=== PATIENT | female | born 1995 | race Caucasian/White ===

== ENCOUNTER → 2016-03-10 | Outpatient (CLI) | payer OTHER ==
[~2016-03-10] MED LIST: XULA1DIS TD
[2016-03-10 18:32] LABS: BASO % 0.2 % (0.0-1.0); EOS % 0.7 % (0.0-3.0); LARGE UNSTAINED CELL # 0.1 K/mm3 (0.0-0.4); LARGE UNSTAINED CELL % 1.4 % (0.0-4.0); LYMPH # 1.4 K/mm3 (1.5-6.5); LYMPH % 18.7 % (24.0-44.0); MEAN CORPUSCULAR HEMOGLOBIN 28.6 pg (27.0-33.0); MEAN CORPUSCULAR HGB CONC 32.1 g/dl (32.0-36.5); MEAN CORPUSCULAR VOLUME 89.2 fl (80.0-96.0); MONO # 0.4 K/mm3 (0.0-0.8); MONO % 5.9 % (0.0-5.0); NEUTROPHILS # 5.4 K/mm3 (1.8-7.7); NEUTROPHILS % 73.1 % (36.0-66.0); PLATELET COUNT, AUTOMATED 220 k/mm3 (150-450); RED CELL DISTRIBUTION WIDTH 12.9 % (11.5-14.5); WHITE BLOOD COUNT 7.4 K/mm3 (4.0-10.0)
[2016-03-11 10:18] LABS: HIV SCRN NEGATIVE (NEGATIVE); HIV SCRN1 NEGATIVE (NEGATIVE)
[2016-03-11 10:19] LABS: CONTROL LINE INT CTR LINE PRESENT
[2016-03-13 10:49] LABS: HBsAg Prenatal NEGATIVE (NEGATIVE)
== END ==
LOC: M SMT 14:04
PROVIDERS: ATTEND Obstetrics & Gynecology
DX: Z34.81 Encounter for supervision of other normal pregnancy, first trimester (principal)

== ENCOUNTER → 2016-06-06 | Outpatient (CLI) | payer OTHER ==
--- NOTE | 2016-06-06 16:51 | REP ---
OB ULTRASOUND: Real-time sonographic evaluation of the gravid uterus is performed. There is a single living intrauterine gestation. The estimated gestational age is 18 weeks 2 days based on today's ultrasound measurements. EDC 11/05/2016. BPD 41 mm = 18 weeks 4 days HC 154 mm = 18 weeks 3 days AC 128 mm = 18 weeks 3 days Femur length 27 mm = 18 weeks 2 days HC/AC ratio 1.20 within normal range. Estimated weight 235 grams at the 49th percentile. Cervix is closed measures 3.7 cm in length. heart rate 144 beats per minute. SEEN/GROSSLY UNREMARKABLE Lateral ventricles Yes Posterior fossa Yes Upper lip No Four-chamber heart Yes LVOT Yes RVOT Yes Stomach Yes Cord insertion Yes Three vessel cord Yes Kidneys Yes Bladder Yes Spine Yes position: Vertex Placenta: Anterior and grade 0 with no previa or abruption. Amniotic fluid: Within normal limits. Signed by Brent Haro MD 06/07/2016 08:34 A
== END ==
LOC: M SMT 14:04
PROVIDERS: ATTEND Obstetrics & Gynecology
DX: O09.299 Supervision of pregnancy with other poor reproductive or obstetric history, unspecified trimester (principal); Z82.79 Family history of other congenital malformations, deformations and chromosomal abnormalities

== ENCOUNTER → 2016-08-01 | Outpatient (CLI) | payer OTHER ==
[2016-08-01 13:44] LABS: MEAN CORPUSCULAR HEMOGLOBIN 30.6 pg (27.0-33.0); MEAN CORPUSCULAR VOLUME 89.9 fl (80.0-96.0); RED CELL DISTRIBUTION WIDTH 13.3 % (11.5-14.5)
== END ==
LOC: M SMT 10:58
PROVIDERS: ATTEND Advanced Practice Midwife
DX: Z34.02 Encounter for supervision of normal first pregnancy, second trimester (principal); Z13.79 Encounter for other screening for genetic and chromosomal anomalies

== ENCOUNTER 2016-10-05 01:27 | Inpatient (IN) | payer OTHER ==
[~2016-10-05] VITALS: Ht 162.6 cm; Wt 78.0 kg
[2016-10-05] VITALS (9 sets, daily range): BP systolic 121–146; BP diastolic 70–91
[2016-10-05] MEDS ORDERED: LACTATED RINGER'S 1000 ML IV STA (02:07)
[2016-10-05] MEDS ORDERED: LR 1,000 ML IV SCH (02:07)
[2016-10-05] MEDS ORDERED: BICITRA 30ML SOLN UDC PO ONE (02:15)
[2016-10-05] MEDS ORDERED: MORPHINE PRES-FREE INJ 10 MG/10 ML VIAL (J2274) As Ordered ONE (02:24)
[2016-10-05 02:27] LABS: MEAN CORPUSCULAR HEMOGLOBIN 30.5 pg (27.0-33.0); MEAN CORPUSCULAR HGB CONC 34.1 g/dl (32.0-36.5); MEAN CORPUSCULAR VOLUME 89.3 fl (80.0-96.0); RED CELL DISTRIBUTION WIDTH 12.7 % (11.5-14.5)
[2016-10-05] MEDS ORDERED: fentaNYL 100 MCG/2 ML INJECTION (J3010) As Ordered ONE (02:40)
[2016-10-05] MEDS ORDERED: MIDAZOLAM INJ 2 MG/2 ML VIAL (J2250) As Ordered ONE (02:43)
[2016-10-05] MEDS ORDERED: dexameTHASONE 4 MG/ML 1ML VIAL (J1100) As Ordered ONE (02:54)
[2016-10-05] MEDS ORDERED: ONDANSETRON 4MG/2ML VIAL (J2405) As Ordered ONE ×2 (02:54→05:17)
[2016-10-05] MEDS ORDERED: SUCCINYLCHOLINE 100 MG/5 ML SYRINGE (J0330) As Ordered ONE (02:54)
[2016-10-05] MEDS ORDERED: LIDOCAINE 2% INJ 100 MG/5 ML SDV (FOR ANES.) As Ordered ONE (02:55)
[2016-10-05] MEDS ORDERED: PROPOFOL 200 MG/20 ML VIAL As Ordered ONE (02:55)
[2016-10-05] MEDS ORDERED: METOCLOPRAMIDE INJ 10MG/2ML VIAL (J2765) As Ordered ONE (03:18)
[2016-10-05] MEDS ORDERED: NEOSTIGMINE 10 MG/10 ML VIAL (J2710) As Ordered ONE (03:23)
[2016-10-05] MEDS ORDERED: GLYCOPYRROLATE INJ 0.2 MG/ML 2 ML VIAL As Ordered ONE (03:23)
[2016-10-05 03:32] LABS: CORD GAS ABE A -1.9; CORD GAS HCO3 A 28.2 MEQ/L; CORD GAS O2 SAT A 38.7 %; CORD GAS PCO2 A 71.2 mmHg; CORD GAS PH A 7.215 UNITS; CORD GAS PO2 A 20.6 mmHg; CORD GAS SBC A 21.4 MEQ/L; CORD GAS TCO2 A 30.3 MEQ/L
[2016-10-05 03:42] LABS: CORD GAS ABE V -1.3; CORD GAS HCO3 V 27.6 MEQ/L; CORD GAS O2 SAT V 34.1 %; CORD GAS PCO2 V 63.3 mmHg; CORD GAS PH V 7.257 UNITS; CORD GAS PO2 V 18.1 mmHg; CORD GAS SBC V 21.7 MEQ/L; CORD GAS TCO2 V 29.5 MEQ/L
[2016-10-05] MEDS: LR 1,000 ML IV SCH ×2 (03:48→11:48)
[2016-10-05] MEDS ORDERED: KETOROLAC 60 MG/2 ML VIAL (J1885) As Ordered ONE (03:49)
[2016-10-05] MEDS ORDERED: NS 1,000 ML IV SCH (03:52)
[2016-10-05] MEDS ORDERED: MORPHINE 1MG/ML IN 0.9% NACL 100ML IV BAG IV PRN (04:00)
[2016-10-05] MEDS ORDERED: EPIDURAL/PCA KEYS XX PRN (04:00)
[2016-10-05] MEDS ORDERED: diphenhydrAMINE INJ 50MG/ML VIAL (J1200) IV PRN (04:00)
[2016-10-05] MEDS ORDERED: NALBUPHINE HCL 10 MG/ML AMP (J2300) IV PRN (04:00)
[2016-10-05] MEDS ORDERED: PROMETHAZINE 25 MG TAB PO PRN (04:00)
[2016-10-05] MEDS ORDERED: NALOXONE INJ 0.4 MG/1 ML VIAL (J2310) IV PRN (04:00)
[2016-10-05] MEDS ORDERED: MEASLES,MUMPS,RUBELLA VACCINE INJ (MMR-II) (90707) SC SCH (04:00)
[2016-10-05] MEDS ORDERED: RHOGAM 300 MCG (1500 IU) INJ (J2790) IM SCH (04:00)
[2016-10-05] MEDS ORDERED: ONDANSETRON 4MG/2ML VIAL (J2405) IV PRN ×3 (04:00→04:45)
[2016-10-05] MEDS ORDERED: PERCOCET 5MG/325MG TAB PO PRN ×3 (04:00→04:45)
[2016-10-05] MEDS ORDERED: HYDROmorphone HCL 1 MG/ML SYRINGE (J1170) As Ordered ONE (04:11)
[2016-10-05] MEDS: HYDROmorphone HCL 1 MG/ML SYRINGE (J1170) IV PRN ×2 (04:14→04:26)
[2016-10-05] MEDS ORDERED: OXYTOCIN 30 UNITS IN 0.9% NaCl 500ML IV BAG (J2590) As Ordered ONE (04:34)
[2016-10-05] MEDS ORDERED: MORPHINE 1MG/ML IN 0.9% NACL 100ML IV BAG As Ordered ONE (04:37)
[2016-10-05] MEDS ORDERED: fentaNYL 100 MCG/2 ML INJECTION (J3010) IV PRN (04:45)
[2016-10-05] MEDS: KETOROLAC 30 MG/ML VIAL (J1885) IV SCH ×3 (10:08→22:37)
[2016-10-05] MEDS: DOCUSATE SODIUM 100 MG CAP PO SCH ×2 (10:09→20:28)
[2016-10-05] MEDS: PRENATAL VITAMINS CHEWABLE TABLET PO SCH (10:09)
[2016-10-05] MEDS: PERCOCET 5MG/325MG TAB PO PRN ×2 (10:10→20:29)
--- NOTE | 2016-10-05 22:41 | HPE ---
DATE OF ADMISSION: 10/05/2016 21-year-old 1, estimated date of delivery 11/05/2016 presents at 35 weeks 3 days with reports of spontaneous rupture of membranes, clear, pink tinged fluid with onset of uterine contractions thereafter. Fetus is active. Last normal menstrual period was uncertain, sonogram at 6 weeks confirmed her date of 11/05/2016. Anatomy scan within normal limits. Appropriate care. ALLERGIES: She is allergic to SHELLFISH and BACTRIM. MEDICAL-SURGICAL: Noncontributory. FAMILY: Unknown. The patient is adopted. SOCIAL HISTORY: Single. Father of the baby is present and supportive. Denies tobacco, alcohol or drugs. OBJECTIVE: Prepregnancy weight 135, total weight gain 40 pounds. A+, antibody negative, rubella immune, VDRL, hepatitis B, hepatitis C, HIV, gonorrhea, Chlamydia all negative. One-hour glucose 74. Group B strep was unknown obtained upon admission. Vital signs are stable. She is uncomfortable contractions 2-5 minutes apart. heart 140 with moderate variability. Scant, clear, pink, mucoid fluid draining per vagina. Spec exam: parts were visible. Sterile vaginal exam 4+ centimeters. parts are palpable non-cephalic. Bedside sonogram confirms breech presentation. ASSESSMENT: Primipara malpresentation and grossly ruptured membranes. PLAN: Admit. Dr. Henley is notified. Prepped for primary .
[2016-10-06] MEDS: PERCOCET 5MG/325MG TAB PO PRN ×4 (00:49→22:25)
[2016-10-06 01:52] VITALS: BP 133/70
[2016-10-06] MEDS: KETOROLAC 30 MG/ML VIAL (J1885) IV SCH (04:34)
[2016-10-06 06:00] VITALS: BP 134/66
[2016-10-06 08:23] LABS: MEAN CORPUSCULAR HEMOGLOBIN 31.2 pg (27.0-33.0); MEAN CORPUSCULAR VOLUME 91.7 fl (80.0-96.0); RED CELL DISTRIBUTION WIDTH 13.3 % (11.5-14.5); WHITE BLOOD COUNT 7.8 K/mm3 (4.0-10.0)
[2016-10-06] MEDS: DOCUSATE SODIUM 100 MG CAP PO SCH ×2 (09:55→20:48)
[2016-10-06] MEDS: PRENATAL VITAMINS CHEWABLE TABLET PO SCH (09:55)
[2016-10-06 10:01] VITALS: BP 131/69
[2016-10-06] MEDS ORDERED: OXYC1TAB23 PO (11:26)
[2016-10-06] MEDS ORDERED: IBUP-1022 PO (11:27)
[2016-10-06] MEDS ORDERED: COLA100C5 PO (11:28)
[2016-10-06 14:30] VITALS: BP 151/72
[2016-10-06] MEDS: IBUPROFEN 800 MG TAB PO SCH ×2 (15:54→20:48)
[2016-10-06 18:11] VITALS: BP 145/83
[2016-10-06 22:24] VITALS: BP 122/72
[2016-10-07] MEDS: IBUPROFEN 800 MG TAB PO SCH ×3 (04:09→20:12)
[2016-10-07 06:08] VITALS: BP 135/81
[2016-10-07] MEDS: DOCUSATE SODIUM 100 MG CAP PO SCH ×2 (08:40→20:12)
[2016-10-07] MEDS: PRENATAL VITAMINS CHEWABLE TABLET PO SCH (08:40)
[2016-10-07] MEDS: PERCOCET 5MG/325MG TAB PO PRN ×2 (08:43→19:20)
[2016-10-07 18:00] VITALS: BP 139/80
[2016-10-08] MEDS: PERCOCET 5MG/325MG TAB PO PRN ×3 (01:03→14:13)
[2016-10-08] MEDS: IBUPROFEN 800 MG TAB PO SCH ×2 (04:19→12:34)
[2016-10-08 06:00] VITALS: BP 130/79
[2016-10-08] MEDS: PRENATAL VITAMINS CHEWABLE TABLET PO SCH (08:56)
[2016-10-08] MEDS: DOCUSATE SODIUM 100 MG CAP PO SCH (08:56)
[2016-10-08] MEDS ORDERED: PRENTAB9 PO (13:50)
[2016-10-08] MEDS ORDERED: IBUP-1114 PO (13:50)
--- NOTE | 2016-10-09 11:32 | DSES ---
DATE OF ADMISSION: 10/05/2016 DATE OF DISCHARGE: 10/08/2016 FINAL DIAGNOSES: 1. labor with premature rupture of membrane. 2. Breech presentation. DISCHARGE DIAGNOSES: 1. labor with premature rupture of membrane. 2. Breech presentation. 3. Status post primary low transverse section. CONDITION ON DISCHARGE: Stable. DISCHARGE INSTRUCTIONS: The patient is instructed to call for post op appointment in 2 weeks. She is to call if there is any severe bleeding, pain, temperature greater than 101. She is instructed to use Motrin as needed for pain and Percocet as needed BRIEF HISTORY: Nayely is G1, para 0 who presented with premature rupture of membranes found to be in breech position. She underwent a primary low transverse section. Was then transferred to maternity for postoperative care. Postoperatively she did well, remained afebrile all throughout her postoperative stay. Her preop hemoglobin and hematocrit was 14.6 over 42.9 and her postop hematocrit and hemoglobin was 10 over 29.5. On the day of discharge, her physical exam was essentially within normal limits. Her incision was clean, dry and intact. After meeting all discharge criteria, she was then discharged home in stable condition to follow up with [facility] approximately 2 weeks for incision check. She is given the above noted instructions.
== END 2016-10-08 14:30 | disposition home or self-care (01) | DRG 540 ==
LOC: M LDO 01:27 → M LDI 02:03 → M OBS 06:03
PROVIDERS: ADMIT Advanced Practice Midwife; ATTEND Advanced Practice Midwife
PROC: 10D00Z1 Extraction of Products of Conception, Low, Open Approach (ICD-10-PCS; principal; 2016-10-05 03:44)
DX: O60.14X0 Preterm labor third trimester with preterm delivery third trimester, not applicable or unspecified (principal); O32.1XX0 Maternal care for breech presentation, not applicable or unspecified; Z37.0 Single live birth; Z3A.35 35 weeks gestation of pregnancy; Z88.8 Allergy status to other drugs, medicaments and biological substances; Z91.013 Allergy to seafood; O42.013 Preterm premature rupture of membranes, onset of labor within 24 hours of rupture, third trimester

== ENCOUNTER → 2017-04-03 | Outpatient (REF) | payer OTHER ==
[2017-04-03 16:00] LABS: CHLAMYDIA DNA AMPLIFICATION NEGATIVE (NEGATIVE); GC DNA AMPLIFICATION NEGATIVE (NEGATIVE)
== END ==
LOC: M LAB REF 12:47
DX: Z11.3 Encounter for screening for infections with a predominantly sexual mode of transmission (principal)
CPT/HCPCS: 87591

== ENCOUNTER → 2017-04-12 | Outpatient (CLI) | payer OTHER ==
[2017-04-12 15:17] LABS: HEMATOCRIT 41.2 % (36.0-47.0); HEMOGLOBIN 13.5 g/dl (12.0-16.0); MEAN CORPUSCULAR HEMOGLOBIN 28.5 pg (27.0-33.0); MEAN CORPUSCULAR HGB CONC 32.8 g/dl (32.0-36.5); MEAN CORPUSCULAR VOLUME 87.1 fl (80.0-96.0); PLATELET COUNT, AUTOMATED 255 10^3/uL (150-450); RED BLOOD COUNT 4.73 10^6/uL (4.00-5.40); RED CELL DISTRIBUTION WIDTH 14.4 % (11.5-14.5); WHITE BLOOD COUNT 8.1 10^3/uL (4.0-10.0)
[2017-04-12 15:35] LABS: ESTIMATED AVERAGE GLUCOSE 94 MG/DL (60-110); HEMOGLOBIN A1c 4.9 %
[2017-04-12 15:43] LABS: ALBUMIN 4.2 GM/DL (3.2-5.2); ALBUMIN/GLOBULIN RATIO 1.08 (1.00-1.93); ALKALINE PHOSPHATASE 53 U/L (45-117); ALT/SGPT 23 U/L (12-78); ANION GAP 9 MEQ/L (8-16); AST/SGOT 14 U/L (7-37); BILIRUBIN,TOTAL 0.7 MG/DL (0.2-1.0); BLOOD UREA NITROGEN 7 MG/DL (7-18); CALCIUM LEVEL 8.9 MG/DL (8.5-10.1); CARBON DIOXIDE LEVEL 27 MEQ/L (21-32); CHLORIDE LEVEL 103 MEQ/L (98-107); CHOLESTEROL LEVEL 149 MG/DL (<200); CHOLESTEROL RISK RATIO 1.585 (<5); CREATININE FOR GFR 0.71 MG/DL (0.55-1.30); GLOMERULAR FILTRATION RATE > 60.0 (>60); GLUCOSE, FASTING 81 MG/DL (70-100); HDL CHOLESTEROL 94 MG/DL (>40); IRON (FE) 114 UG/DL (50-170); LDL CHOLESTEROL 33.4 MG/DL (<100); NON-HDL-C 55 MG/DL; PERCENT SATURATION 22.1 % (13.2-45.0); POTASSIUM SERUM 3.9 MEQ/L (3.5-5.1); SODIUM LEVEL 139 MEQ/L (136-145); TOTAL IRON BINDING CAPACITY 515 UG/DL (250-450); TOTAL PROTEIN 8.1 GM/DL (6.4-8.2); TRIGLYCERIDES LEVEL 108 MG/DL (<150)
[2017-04-12 15:48] LABS: TOTAL 25(OH) VITAMIN D 23.7 NG/ML (30.0-100.0)
== END ==
LOC: M LAB 14:27
DX: E03.9 Hypothyroidism, unspecified (principal); D64.9 Anemia, unspecified; R53.83 Other fatigue
CPT/HCPCS: 83550

== ENCOUNTER → 2017-05-15 | Outpatient (REF) | payer OTHER ==
[2017-05-15 21:10] LABS: INFLUENZA A AMPLIFICATION NEGATIVE (NEGATIVE); INFLUENZA B AMPLIFICATION NEGATIVE (NEGATIVE)
== END ==
LOC: M LAB REF 20:10
DX: J11.1 Influenza due to unidentified influenza virus with other respiratory manifestations (principal)

== ENCOUNTER → 2017-08-02 | Outpatient (REF) | payer OTHER ==
[2017-08-02 20:57] LABS: CHLAMYDIA DNA AMPLIFICATION NEGATIVE (NEGATIVE); GC DNA AMPLIFICATION NEGATIVE (NEGATIVE)
== END ==
LOC: M SFHCWAGY 18:34
DX: Z11.3 Encounter for screening for infections with a predominantly sexual mode of transmission (principal)

== ENCOUNTER → 2017-08-02 | Outpatient (REF) | payer OTHER | LOC: M SFHCWAGY 12:25 | DX: N93.0 Postcoital and contact bleeding (principal); Z12.4 Encounter for screening for malignant neoplasm of cervix ==

== ENCOUNTER → 2017-09-20 | Outpatient (REF) | payer OTHER ==
[2017-09-20 15:05] LABS: CHLAMYDIA DNA AMPLIFICATION NEGATIVE (NEGATIVE); GC DNA AMPLIFICATION NEGATIVE (NEGATIVE)
== END ==
LOC: M SFHCWAGY 13:03
DX: N93.0 Postcoital and contact bleeding (principal); Z11.3 Encounter for screening for infections with a predominantly sexual mode of transmission
CPT/HCPCS: 87591

== ENCOUNTER → 2017-09-27 | Outpatient (CLI) | payer OTHER | LOC: M WHC 08:29 | DX: N93.0 Postcoital and contact bleeding (principal); Q51.2 Other doubling of uterus | CPT/HCPCS: 76830 ==

== ENCOUNTER → 2018-07-25 | Outpatient (REF) | payer OTHER ==
[~2018-07-25] MED LIST changes: +COLA100C5 PO; +IBUP-1022 PO; +IBUP-1114 PO; +OXYC1TAB23 PO; +PRENTAB9 PO
[2018-07-25 18:06] LABS: APPEARANCE, URINE CLEAR (CLEAR); BACTERIA, URINE AUTO NEGATIVE (NEGATIVE); BILIRUBIN, URINE AUTO NEGATIVE (NEGATIVE); BLOOD, URINE BLOOD 1+ (NEGATIVE); COLOR, URINE STRAW (YELLOW); GLUCOSE, URINE (UA) AUTO NEGATIVE (NEGATIVE); KETONE, URINE AUTO TRACE mg/dL (NEGATIVE); LEUKOCYTE ESTERASE, URINE AUTO NEGATIVE (NEGATIVE); NITRITE, URINE AUTO NEGATIVE (NEGATIVE); PROTEIN, URINE AUTO NEGATIVE (NEGATIVE); RBC, URINE AUTO 0 /HPF (0-3); SPECIFIC GRAVITY URINE AUTO 1.003 (1.002-1.035); SQUAMOUS EPITHELIAL CELL UR AU 0 /HPF (0-6); UROBILINOGEN, URINE AUTO 0.2 mg/dL (0.0-2.0); WBC, URINE AUTO 0 /HPF (0-3)
== END ==
LOC: M LAB REF 16:24
PROVIDERS: ATTEND Physician Assistant Medical
DX: N39.0 Urinary tract infection, site not specified (principal)